=== PATIENT | female | born 1945 | race Caucasian/White ===

== ENCOUNTER 2018-04-10 00:21 | Observation (INO) ==
[2018-04-10] MEDS ORDERED: Naloxone 0.4 MG/ML INJ IVP PRN (05:25)
[2018-04-10] MEDS ORDERED: 0.9 % Sodium Chloride 1,000 ML IVC ONE (05:49)
--- NOTE | 2018-04-10 05:53 | Internal Med History&Physical ---
Date of Encounter: 04/10/18 Time of Encounter: 04:30 Internal Medicine - H&P: HPI Chief complaint: Sepsis, pyelonephritis, pneumonia Admitted From: Home Plans for Post Hospital Care: Home History of present illness: Ms. Pittman is a 72 year old female Patient states that she had a fever at home of 103.2. She had been feeling good all afternoon prior to her arrival to the [facility] emergency room. She had been feeling well on the days previous but was concerned enough to go to the emergency room to be checked out. The emergency room her temperature was noted to be 102.4, CT showed focal infiltrate in the right lower base measuring 2.3 cm. Stomach was also incompletely distended and there is scattered colonic diverticulosis and focal diverticulitis of the sigmoid colon suspected. She has a history of mucous plug removal a few months ago here at [place], and she requested to be transferred here for further management. She has had slight cough with no sputum, denies diarrhea, constipation, chest pain, abdominal pain and dysuria. She says she treated herself for what she thought was urinary tract infection for the last few days. She has a history of diverticulitis in the past currently denies blood in her stool or dark-colored stool. Upon arrival here her temperature was 101.4, and she had no real complaints. She does not take any medications. When asked about sick contacts she noted that her great granddaughter was recently put in the hospital with a fever of 105. She was not sure of the cause or what workup they were doing for that. A review of the [facility] workup showed patient had an elevated CRP of 11.5 and elevated lactic acid of 1.5. She was given Levaquin, Rocephin and Flagyl. 1 L normal saline given prior to her departure from [facility] was also given. At this time I am unclear if patient had blood cultures and urine cultures drawn. Nursing is attempting to contact the ER for clarification. Past Med Surg Social Fam HX - Past Medical History Medical history: arthritis, cancer, thyroid disease Psychiatric history: no psych history - Past Surgical History Surgical History: cancer surgery, cholecystectomy, hysterectomy Additional surgical history: tonsils - Social History Smoking Status: Former smoker Smokeless Tobacco Status: No Alcohol use: none Drug use: none - Family History Mother Adopted: Yes ( mom) Age: 48 Living Status: Cause of : OR Hx Family Endocrine Disorder: Yes (DM type 2) Father Adopted: Yes ( father) Living Status: Cause of : prostate cancer Internal Medicine - H&P: Meds No Known Home Drugs 10/24/17 [History] 3 Allergy/AdvReac Type Severity Reaction Status Date / Time No Known Allergies Allergy Verified 10/24/17 08:24 All Systems PM: A 10-system review of systems was performed and is negative for pertinent findings except as documented above in the HPI. - Constitutional Vitals: Temp Pulse Resp BP Pulse Ox 101.4 F H 98 16 127/60 95 04/10/18 04:02 04/10/18 04:02 04/10/18 04:02 04/10/18 04:02 04/10/18 04:02 General appearance: Present: cooperative, A&O X 3, pleasant, no acute distress, answers questions appropriately - Head Head exam: Present: normal inspection - Eye Eye exam: Present: EOMI, normal appearance - Respiratory Respiratory exam: Present: CTAB. Absent: chest wall tenderness, decreased breath sounds, rales, respiratory distress, rhonchi, wheezes - Cardiovascular Cardiovascular exam: Present: RRR. Absent: diastolic murmur, systolic murmur - GI/Abdominal GI/Abdominal exam: Present: normal bowel sounds, soft. Absent: guarding, tenderness - Extremities Exam Extremities exam: Present: warm, radial pulses palpable and symmetrical. Absent : calf tenderness, pedal edema, tenderness - Neurological Exam Neurological exam: Present: no focal deficits, strengths equal and symetr throughout. Absent: motor sensory deficit, facial droop, speech deficit - Skin Skin exam: Present: dry, normal color, warm - Assessment and plan (1) Sepsis Current Visit: Yes Status: Acute Assessment and plan: Patient is elevated temperature, lactic acid of 1.5 which at the [facility] lab is elevated, elevated CRP of 11.5 and white count of 13.1. Patient upon arrival still had a fever of 101.4. Tylenol 650 every 6 hours when necessary for fever Treating multiple infections as below IV fluids given at [facility] 1 L, continue with additional bolus here Repeat lactic acid in the morning Continue to monitor Qualifiers: Qualified Code(s): A41.9 - Sepsis, unspecified organism (2) Pyelonephritis Current Visit: Yes Status: Acute Assessment and plan: Patient's UA showed positive nitrites and moderate leukocyte esterase with trace blood and protein. She says she has been treating herself for urinary tract infection at home and has no complaints of dysuria. Confirm if urine culture obtained Patient started on ceftriaxone at [facility], will discontinue for now as patient also started on Levaquin which should cover UTI. (3) Right lower lobe pneumonia Current Visit: Yes Status: Acute Assessment and plan: Patient denies aspiration and difficulty swallowing, CT showed right lower basilar infiltrate 2.3 cm. Physical exam noted no appreciable adverse breath sounds. Levaquin 500 mg daily Confirm if blood cultures obtained at [facility] Qualifiers: Qualified Code(s): J18.1 - Lobar pneumonia, unspecified organism (4) Sigmoid diverticulitis Current Visit: Yes Status: Acute Assessment and plan: CT showed suspected focal diverticulitis of the sigmoid colon. Continue Levaquin and Flagyl Confirm if blood cultures obtained at [facility] (5) Umbilical hernia Current Visit: Yes Status: Acute Assessment and plan: Reducible, CT showed possible incarcerated loops of transverse colon. Physical exam does not show any abdominal tenderness. Patient has had this for years without incident Continue to monitor Qualifiers: Qualified Code(s): K42.9 - Umbilical hernia without obstruction or gangrene (6) Gastric distention Current Visit: Yes Status: Acute Assessment and plan: As evidenced by CT, radiology recommended EGD for further evaluation. Patient has no complaints, no abdominal pain. Continue to monitor - Time Spent With Patient Total time spent is greater than 50% in coordination of care (as documented) at patient's floor/unit and/or counseling patient: Greater than 35 minutes
[2018-04-10 06:13] LABS: Hematocrit 35.1 % (35.3-44.9); Hemoglobin 11.7 g/dL (11.5-15.4); Mean Corpuscular HGB Conc 33.3 g/dL (31.6-35.5); Mean Corpuscular Hemoglobin 29.4 pg (28.0-33.3); Mean Corpuscular Volume 88.2 fL (83.0-100.0); Mean Platelet Volume 10.5 fL (9.4-12.4); Platelet Count 161 K/mcL (140-400); Red Blood Count 3.98 M/mcL (3.82-4.97); Red Cell Distribution Width 12.4 % (11.5-14.5)
[2018-04-10 06:33] LABS: BUN/Creatinine Ratio 9 (6-26); Blood Urea Nitrogen 8 mg/dL (8-23); Calcium 8.7 mg/dL (8.6-10.3); Carbon Dioxide 24 mEq/L (23-29); Chloride 107 mEq/L (98-107); Glucose 125 mg/dL (70-105); Osmolality,Calculated 288 (280-300); Potassium 3.6 mEq/L (3.5-5.1); Sodium 139 mEq/L (136-145); eGFR For Non-African Americans > 60 (> 60)
[2018-04-10] MEDS: Acetaminophen 325 MG TABLET PO PRN ×2 (06:35→19:46)
[2018-04-10] MEDS: levoFLOXacin 500 MG TABLET PO SCH (08:45)
[2018-04-10] MEDS: metroNIDAZOLE 500 MG TABLET PO SCH ×3 (08:46→22:02)
[2018-04-10] MEDS ORDERED: cefTRIAXone 1,000 MG in Water for inj. (sterile) 20 ML 10 ML IVP SCH (09:00)
--- NOTE | 2018-04-10 15:05 | Internal Med Progress Note ---
Hospitalist Progress Note - Encounter Date of Encounter: 04/10/18 Time of Encounter: 10:30 - Subjective Interval History: Patient resting quietly in bed. She was seen and assessed at bedside at 10:30 AM. She is alert, awake, oriented, answers questions appropriately. She denies any headache, blurred vision, neck pain, fever or chills. She denies chest pain or shortness of breath. She denies abdominal pain, nausea, vomiting , diarrhea. She denies any new peripheral edema. Patient is agreeable to staying overnight again for continued IV therapy and will reevaluate tomorrow. - Exam Vitals: Temp Pulse Resp BP Pulse Ox 98.0 F 91 16 113/69 94 04/10/18 11:21 04/10/18 11:21 04/10/18 11:21 04/10/18 11:21 04/10/18 11:21 - Assessment and Plan (1) Gastric distention Current Visit: Yes Status: Acute Assessment and Plan: Per CT. Radiology recommended EGD for further evaluation. Patient denies any complaints, no abdominal pain. Continue to monitor. (2) Pyelonephritis Current Visit: Yes Status: Acute Assessment and Plan: UA showed positive nitrites and moderate leukocyte esterase with trace of blood and protein. Patient reports she has been treating herself for urinary tract infection at home and has no complaints of dysuria, urgency, or increased frequency. Per primary RN spoke with [facility], urine culture was collected prior to transfer. She was started on [facility]phin [facility] g [facility], patient is already on Levaquin for other infections, this should also cover UTI. Plan as above. (3) Right lower lobe pneumonia Current Visit: Yes Status: Acute Assessment and Plan: Head CT showed right lower lobe basilar infiltrate, 2.3 cm. On admission, physical exam noted no adverse breath sounds, though lungs are diminished in posterior schmitt. Continue Levaquin 500 mg daily Urine and blood [facility]. Patient is not requiring supplemental oxygen, O2 sats remained above 92%. Continue IV antibiotics Continue monitor labs and vitals O2 as needed to maintain sats greater than 92%. (4) Sepsis Current Visit: Yes Status: Acute Assessment and Plan: Patient presented with elevated temperature and leukocytosis. Patient denies fever or chills now. Patient has been afebrile since 4 AM. Lactic acid was elevated on arrival. Leukocytosis has resolved, lactic within normal limits on admission to this hospital. Patient with mild tachycardia, rate only mildly above 90. Patient without hypotension. Patient with pyelonephritis, diverticulitis, as well as right lower lobe pneumonia. Continue Rocephin, Levaquin, Flagyl. Continue to monitor labs and vital signs. (5) Sigmoid diverticulitis Current Visit: Yes Status: Acute Assessment and Plan: Head CT showed suspected focal diverticulitis of sigmoid colon. Patient is on Levaquin and Flagyl. [facility] Patient reports some low abdominal tenderness prior to admission, none today.. Continue antibiotics, continue to monitor. (6) Umbilical hernia Current Visit: Yes Status: Acute Assessment and Plan: Chronic.. CT showed possible incarcerated loops of transverse colon. Abdomen is soft and nontender to palpation, it is reducible. Continue to monitor. (7) DVT prophylaxis Current Visit: Yes Status: Acute Assessment and Plan: Heparin subcutaneous twice daily. - Time Spent with Patient Total time spent is greater than 50% in coordination of care (as documented) at patient's floor/unit and/or counseling patient: less than 15 minutes Plan of Care Discussed with: patient Internal Medicine: Result - Labs CBC & Chem 7: 04/10/18 05:57 04/10/18 05:57 Labs: Short CBC 04/10/18 Range/Units 05:57 WBC 11.1 (4.3-11.1) K/mcL Hgb 11.7 (11.5-15.4) g/dL Hct 35.1 L (35.3-44.9) % Plt Count 161 (140-400) K/mcL [facility] 04/10/18 05:57 Sodium 139 Potassium 3.6 Chloride 107 Carbon Dioxide 24 BUN 8 Creatinine 0.87 Glucose 125 H Calcium 8.7 Consult Discharge Plan - Plan Referrals: Judith Tse, CON[employer]IST [Primary Care Provider] - (3) Right lower lobe pneumonia Qualifiers: Qualified Code(s): J18.1 - Lobar pneumonia, unspecified organism (4) Sepsis Qualifiers: Sepsis type: sepsis due to unspecified organism Qualified Code(s): A41.9 - Sepsis, unspecified organism (6) Umbilical hernia Qualifiers: Obstruction and gangrene presence: without obstruction or gangrene Qualified Code(s): K42.9 - Umbilical hernia without obstruction or gangrene
--- NOTE | 2018-04-10 16:31 | Electrocardiograph Report ---
[address] [place], [place] [address] Test Date: 2018-04-10 Pat Name: Naty Pittman Department: 113 Room: 3B38 Gender: F Dye Tank Tender: : 1945 Requested By: Saurav Loving Order Number: [id number] Reading MD: Mary Beth Cid Measurements Intervals [place] Rate: 89 P: 59 MS: 150 QRS: 20 QRSD: 86 T: 71 QT: 365 QTc: 411 Interpretive Statements SINUS RHYTHM Electronically Signed On 04-10-2018 16:29:32 EDT by Mary Beth Cid
[2018-04-10] MEDS: *HR* Heparin 5,000 UNIT/ML VIAL SQ SCH (17:36)
[2018-04-11] MEDS: Acetaminophen 325 MG TABLET PO PRN (04:48)
[2018-04-11] MEDS: *HR* Heparin 5,000 UNIT/ML VIAL SQ SCH ×2 (06:41→17:04)
[2018-04-11] MEDS: levoFLOXacin 500 MG TABLET PO SCH (08:28)
[2018-04-11] MEDS: metroNIDAZOLE 500 MG TABLET PO SCH ×3 (08:28→21:09)
--- NOTE | 2018-04-11 17:45 | Discharge Summary ---
Date of Encounter: 04/12/18 Time of Encounter: 11:35 - Discharge Diagnosis (1) Gastric distention Priority: Secondary Status: Acute Assessment and Plan: Per CT. Radiology recommended EGD for further evaluation. Patient denies any complaints, no abdominal pain, nausea, vomiting, pt is eating well. ABdomen is non-tender to palpation. Curbside consult with [facility], not concerning if pt is tolerating po intake, no nausea or vomiting, or pain. Follow up outpatient. (2) Pyelonephritis Priority: Secondary Status: Acute Assessment and Plan: UA showed positive nitrites and moderate leukocyte esterase with trace of blood and protein. Patient reports she has been treating herself for urinary tract infection at home and has no complaints of dysuria, urgency, or increased frequency. Per primary RN spoke with [facility], urine culture was collected prior to transfer. Will need to contact [facility] for results tomorrow and change antibiotics if needed. She was started on Rocephin 1 g IV and [facility], patient is already on Levaquin for other infections, this should also cover UTI. Continue po Levaquin and Flagyl on discharge. (3) Right lower lobe pneumonia Priority: Secondary Status: Acute Assessment and Plan: CT showed right lower lobe basilar infiltrate, 2.3 cm. On admission, physical exam noted no adverse breath sounds, though lungs are diminished in posterior schmitt. No wheezing, rales, ronchi, SOB, dyspnea on exertion or conversational dyspnea. Continue Levaquin 500 mg daily Urine and blood cultures were both obtained and [facility], will try to obtain tomorrow. Patient is not requiring supplemental oxygen, O2 sats remained above 92%. Continue po Levaquin Qualifiers: Pneumonia type: due to unspecified organism Qualified Code(s): J18.1 - Lobar pneumonia, unspecified organism (4) Sepsis Priority: Secondary Status: Resolved Assessment and Plan: Patient presented with elevated temperature and leukocytosis. Patient denies fever or chills now. Patient has been afebrile since 4 AM, fevers trending overnight. Lactic acid was elevated at [facility], WNL here. Leukocytosis has resolved. Patient has no tachycardiaor hypotension. Patient with pyelonephritis, diverticulitis, as well as right lower lobe pneumonia. Continue Levaquin Qualifiers: Sepsis type: sepsis due to unspecified organism Qualified Code(s): A41.9 - Sepsis, unspecified organism (5) Sigmoid diverticulitis Priority: Primary Status: Acute Assessment and Plan: CT showed suspected focal diverticulitis of sigmoid colon. Patient is on po Levaquin and Flagyl . [facility] will [facility] to obtain. Patient reports some low abdominal tenderness prior to admission which has resolved. Continue antibiotics. (6) Umbilical hernia Priority: Secondary Status: Acute Assessment and Plan: Chronic. CT showed possible incarcerated loops of transverse colon. Abdomen is soft and nontender to palpation, it is reducible. Follow with PCP. Qualifiers: Obstruction and gangrene presence: without obstruction or gangrene Qualified Code(s): K42.9 - Umbilical hernia without obstruction or gangrene (7) DVT prophylaxis Priority: Secondary Status: Acute Assessment and Plan: Heparin subcutaneous BID Hospital course: Ms. Pittman is a 72 year old female with past medical history of hypertension, hyperlipidemia. She presented to the emergency department with fevers and overall malaise. [facility] here for assessment and admission. Chest CT showed focal infiltrate and right lower lobe, stomach was incompletely distended nurse scattered: Diverticulosis with focal diverticulitis sigmoid colon. Patient also reports that she has been treating herself for which is urinary tract infection last few days. She reports that her great granddaughter was recently in the hospital for fevers and she has had her is a sick contact. Patient was admitted CRP was elevated as well as lactic acid. She was given Levaquin, Rocephin, Flagyl and a fluid bolus. When she arrived at this hospital, lactic returned to normal. [facility] Patient's labs have returned to normal, she has no leukocytosis, no tachycardia , no hypotension. She did have intermittent fevers and was kept in an attempt to make sure she was fever free for 24 hours. Pt will be discharged in stable condition home with prescriptions for Levaquin and Flagyl po. Recommended close follow-up with primary care as scheduled. Discharge discussed with: patient, nurse - Time Spent with Patient Total time spent providing and/or coordinating discharge services: Less than 30 minutes - Discharge Medications Prescriptions: levoFLOXacin [Levaquin] 500 mg PO DAILY #7 tablet metroNIDAZOLE [Flagyl] 500 mg PO TID #21 tablet Home Medications: levoFLOXacin [Levaquin] 500 mg PO DAILY #7 tablet 04/11/18 [Rx] metroNIDAZOLE [Flagyl] 500 mg PO TID #21 tablet 04/11/18 [Rx] Allergies/Adverse Reactions: 3 Allergy/AdvReac Type Severity Reaction Status Date / Time No Known Allergies Allergy Verified 10/24/17 08:24 Date of admission: 04/10/18 02:19 Primary care physician: Judith Tse CNP Consults: 04/10/18 08:30 Consult to Nurse Navigator [CONS] Routine Comment: PNEUMONIA Discharging clinician: Lillian Esparza Anticipated date of discharge: 04/11/18 - Constitutional Vitals: Temp Pulse Resp BP Pulse Ox 98.8 F 82 16 120/77 95 04/11/18 15:23 04/11/18 15:23 04/11/18 15:23 04/11/18 15:23 04/11/18 15:23 General appearance: Present: cooperative, A&O X 3, pleasant, no acute distress, answers questions appropriately - Head Head exam: Present: atraumatic, normal inspection, normocephalic - Eye Eye exam: Present: normal appearance, conjuntiva pink, sclera anicteric - Neck Neck exam general surgery: Present: normal inspection, supple, trachea midline. Absent: lymphadenopathy, tenderness - Respiratory Respiratory exam: Present: CTAB. Absent: accessory muscle use, chest wall tenderness, decreased breath sounds, rales, respiratory distress, rhonchi, wheezes - Cardiovascular Cardiovascular exam: Present: RRR, +S1, +S2. Absent: diastolic murmur, gallop, rubs, systolic murmur - GI/Abdominal GI/Abdominal exam: Present: hernia, normal bowel sounds, soft. Absent: distended, hepatomegaly, tenderness - Extremities Exam Extremities exam: Present: normal capillary refill, normal inspection, warm, radial pulses palpable and symmetrical. Absent: calf tenderness, cyanotic, pedal edema, tenderness - Neurological Exam Neurological exam: Present: alert, oriented X3, no focal deficits. Absent: facial droop, speech deficit - Skin Skin exam: Present: dry, intact, normal color, warm. Absent: rash - Patient Status Disposition: Home, Self-Care Condition: Good Functional capacity at discharge: independent ambulation Overall status at discharge: patient is progressing back to baseline - Discharge Instructions Follow Up With: Judith Tse CNP [Primary Care Provider] - 04/18/18 1:00 pm Additional Instructions: Follow up with your PCP in the next 3-5 days for a recheck. Take your medications as directed. Return to the ER as needed for any other problems or concerns, or if your symptoms return or worsen. Resume your normal medications and return to your normal diet and activties as tolerated. Your antibiotic prescriptions are at your pharmacy. - Diet and Activity Activity: increase activity as tolerated Diet: low fat, low cholesterol
[2018-04-11] MEDS ORDERED: Acetaminophen 325 MG TABLET PO PRN (21:23)
[2018-04-12] MEDS: *HR* Heparin 5,000 UNIT/ML VIAL SQ SCH (05:22)
[2018-04-12 07:39] VITALS: BP 104/71
--- NOTE | 2018-04-12 12:04 | Internal Med Progress Note ---
Hospitalist Progress Note - Encounter Date of Encounter: 04/12/18 Time of Encounter: 07:20 - Subjective Interval History: Patient resting quietly in bed. She was seen and assessed at bedside at 0720 AM. She is alert, awake, drowsy since she just awakened, oriented, answers questions appropriately. She denies any headache, blurred vision, neck pain, fever or chills. She denies chest pain or shortness of breath. She denies abdominal pain, nausea, vomiting, diarrhea. - Exam Vitals: Temp Pulse Resp BP Pulse Ox 98 F 89 18 104/71 98 04/12/18 07:36 04/12/18 07:36 04/12/18 07:36 04/12/18 07:36 04/12/18 07:36 Exam: General: Pt resting quietly on bed, no distress. Skin: pwd, no rashes, lesions, redness Neurological: Pt is alert and awake, oriented x 3, Speech is clear, PERRLA, EOMI , no nystagmus, no pronator drift. strength equal x 4 extremities HEENT: mucous mumbranes moist, no conjuctival pallor Neck: supple, no tracheal deviation, no lymphadenopathy, tenderness, no thyromegaly Heart: S1S2 heard without gallops, clicks, murmurs, no bradycardia or tachycardia, pt has no peripheral edema, pedal and radial pulses palpable bilaterally. Lungs: clear throughout without wheezing, rales, or ronchi, respirations are unlabored Abdomen: soft and non tender with bowel sound present, rounded, obese Psych: Normal affect with good eye contact - Assessment and Plan (1) Gastric distention Status: Acute Assessment and Plan: Per CT. Radiology recommended EGD for further evaluation. Patient denies any complaints, no abdominal pain, nausea, vomiting, pt is eating well. ABdomen is non-tender to palpation. Curbside consult with GI FLOOR SUPERVISOR, not concerning if pt is tolerating po intake, no nausea or vomiting, or pain. Follow up outpatient. (2) Pyelonephritis Status: Acute Assessment and Plan: UA showed positive nitrites and moderate leukocyte esterase with trace of blood and protein. Patient reports she has been treating herself for urinary tract infection at home and has no complaints of dysuria, urgency, or increased frequency. Urine culture from outside hospital showed unidentified organism, sensitive to Levaquin. Follow with PCP. She was started on Rocephin 1 g IV and outlying hospital, patient is already on Levaquin for other infections, this should also cover UTI. Continue po Levaquin and Flagyl on discharge. (3) Right lower lobe pneumonia Status: Acute Assessment and Plan: CT showed right lower lobe basilar infiltrate, 2.3 cm. On admission, physical exam noted no adverse breath sounds, though lungs are diminished in posterior schmitt. No wheezing, rales, ronchi, SOB, dyspnea on exertion or conversational dyspnea. Continue Levaquin 500 mg daily Blood cultures from outside hospital negative. Patient is not requiring supplemental oxygen, O2 sats remained above 92%. Continue po Levaquin (4) Sepsis Status: Resolved Assessment and Plan: Resolved. (5) Sigmoid diverticulitis Status: Acute Assessment and Plan: CT showed suspected focal diverticulitis of sigmoid colon. Patient is on po Levaquin and Flagyl . Blood cultures negative, Urine culture as above. Patient reports some low abdominal tenderness prior to admission which has resolved. Continue antibiotics. (6) Umbilical hernia Status: Chronic Assessment and Plan: Chronic. CT showed possible incarcerated loops of transverse colon. Abdomen is soft and nontender to palpation, it is reducible. Follow with PCP. (7) DVT prophylaxis Status: Acute Assessment and Plan: Heparin subcutaneous BID, pt ambulatory - Time Spent with Patient Total time spent is greater than 50% in coordination of care (as documented) at patient's floor/unit and/or counseling patient: less than 15 minutes Plan of Care Discussed with: patient Internal Medicine: Result - Labs CBC & Chem 7: 04/10/18 05:57 04/10/18 05:57 Consult Discharge Plan - Plan Instructions: Diverticulitis (DC), Urinary Tract Infection in Women (DC), Pneumonia (DC) Additional Instructions: Follow up with your PCP in the next 3-5 days for a recheck. Take your medications as directed. Return to the ER as needed for any other problems or concerns, or if your symptoms return or worsen. Resume your normal medications and return to your normal diet and activties as tolerated. Your antibiotic prescriptions are at your pharmacy. Referrals: Judith Tse CNP [Primary Care Provider] - 04/18/18 1:00 pm Prescriptions: levoFLOXacin [Levaquin] 500 mg PO DAILY #7 tablet metroNIDAZOLE [Flagyl] 500 mg PO TID #21 tablet (3) Right lower lobe pneumonia Qualifiers: Pneumonia type: due to unspecified organism Qualified Code(s): J18.1 - Lobar pneumonia, unspecified organism (4) Sepsis Qualifiers: Sepsis type: sepsis due to unspecified organism Qualified Code(s): A41.9 - Sepsis, unspecified organism (6) Umbilical hernia Qualifiers: Obstruction and gangrene presence: without obstruction or gangrene Qualified Code(s): K42.9 - Umbilical hernia without obstruction or gangrene
== END 2018-04-12 10:47 | disposition home or self-care (01) ==
LOC: 3BNU
PROVIDERS: ADMIT Family Medicine; ATTEND Family Medicine